=== PATIENT | female | born 1990 | race Caucasian/White ===

== ENCOUNTER 2018-04-10 11:17 | Emergency (ER) | payer OTHER ==
[2018-04-10] MEDS: KETOROLAC 30 MG INJ IM (12:49)
== END 2018-04-10 15:00 | disposition home or self-care (01) ==
LOC: FTE 11:17
DX: S96.911A Strain of unspecified muscle and tendon at ankle and foot level, right foot, initial encounter (principal); X58.XXXA Exposure to other specified factors, initial encounter; Y92.9 Unspecified place or not applicable
CPT/HCPCS: 73610; 73610-RT; 81025; 93971; 96372; 99285-25